=== PATIENT | male | born 1940 | race Caucasian/White ===

== ENCOUNTER → 2020-09-20 | Outpatient (CLI) | payer MEDICARE ==
--- NOTE | 2020-09-20 19:43 | REPVR ---
PROCEDURE INFORMATION: Exam: MR Cervical Spine Without Contrast Exam date and time: 09/20/2020 4:19 PM Age: 80 years old Clinical indication: Pain; Cervicalgia; Additional info: Lumbar t spine pain stenosis ddd abn gait/mobil. Pain in neck TECHNIQUE: Imaging protocol: Multiplanar magnetic resonance images of the cervical spine without contrast. COMPARISON: No relevant prior studies available. FINDINGS: Limitations: This examination is suboptimal secondary to patient motion. Vertebrae: There is loss of normal cervical lordosis with straightening and mild flexion through the upper and mid cervical spine, likely secondary to splinting and/or patient positioning. There is minimal anterolisthesis of C3, C4 and C7, likely degenerative. Spinal cord: No definite evidence of myelopathy. Discs/Spinal canal/Neural foramina: Degenerative disc disease and facet arthrosis is present throughout the cervical and visualized upper thoracic spine. There is advanced degenerative disc disease at T1-T2 with severe disc space height loss, osteophytic ridging, endplate and vertebral body edema signal and grade 1 anterolisthesis of T1. There is moderate/severe spinal stenosis at T1-T2. There is mild spinal stenosis at C3-C4, C4-C5, C5-C6 and C6-C7. Vasculature: Expected flow voids in the vertebral arteries. Soft tissues: Unremarkable IMPRESSION: 1. Suboptimal examination secondary to motion artifact. 2. Degenerative spondylosis throughout the cervical and upper thoracic spine. 3. Advanced degenerative disc disease at T1-T2 with grade 1 anterolisthesis of T1 and endplate and bone marrow edema signal. These changes are likely secondary to degenerative disc disease. Disco discovertebral infection is not excluded but less likely and close clinical correlation and possible follow-up MRI is recommended. Electronically signed by: Andrew Villasenor On 09/20/2020 19:43:22 PM
--- NOTE | 2020-09-20 20:22 | REPVR ---
PROCEDURE INFORMATION: Exam: MR Thoracic Spine Without Contrast Exam date and time: 09/20/2020 4:19 PM Age: 80 years old Clinical indication: Pain in thoracic spine; Without myelpathy or radiculopathy; Additional info: Lumbar t spine pain stenosis ddd abn gait/mobil TECHNIQUE: Imaging protocol: Multiplanar magnetic resonance images of the thoracic spine without contrast. COMPARISON: No relevant prior studies available. FINDINGS: Limitations: This examination is suboptimal secondary to patient motion. Discs/Spinal canal/Neural foramina: Degenerative disc disease and facet arthrosis is present throughout the thoracic spine. There is severe disc disease and facet arthrosis at T1-T2 with mild posterior broad-based disc protrusion, grade 1 anterolisthesis of T1 and bone marrow edema signal. There is moderate severe spinal stenosis at T1-T2 with flattening of the thoracic spinal cord which contains high signal, highly suspicious for cervical myelopathy. The disc disease at T1-T2 is likely degenerative. Underlying discovertebral infection is not completely excluded. Close clinical correlation with possible follow-up MRI is recommended. There is severe disc space height loss at T6-T7 with posterior disco-osteophytic protrusion, minimal anterolisthesis of T6 and vertebral bone marrow edema signal. These findings are likely secondary to severe degenerative disc disease. Discovertebral infection is not completely excluded. Close clinical correlation with possible follow-up MRI is recommended. Degenerative disc disease and facet arthrosis is present throughout the remainder of the thoracic spine with disc protrusions, osteophytic ridging and mild to moderate spinal stenosis at T11-T12, T12-L1 and L1-L2. Soft tissues: There is mild paravertebral soft tissue edema at T1-T2 and T6-T7. Kidneys and ureters: Well-defined fluid signal lesion within the right kidney is incompletely visualized but likely represents a cyst. If this is has not been confirmed by previous imaging study then nonemergent follow-up renal ultrasound is recommended. IMPRESSION: 1. Suboptimal examination secondary to motion artifact. 2. Severe disc disease at T1-T2 with findings suspicious for thoracic cord myelopathy. Discovertebral infection cannot be completely excluded. Correlate clinically and consider follow-up MRI. 3. Severe disc disease at T6-T7, likely degenerative. Discovertebral infection cannot be completely excluded. Correlate clinically and consider follow-up MRI. 4. Degenerative disc disease and facet arthrosis throughout the remainder of the thoracic spine with mild to moderate spinal stenosis at T11-T12, T12-L1 and L1-L2. 5. Well-defined fluid signal lesion within the right kidney is incompletely visualized but likely represents a cyst. If this is has not been confirmed by previous imaging study then nonemergent follow-up renal ultrasound is recommended. Electronically signed by: Andrew Villasenor On 09/20/2020 20:22:11 PM
== END ==
LOC: M RAD 14:43
PROVIDERS: ATTEND Neurological Surgery
DX: M48.061 Spinal stenosis, lumbar region without neurogenic claudication (principal); M48.04 Spinal stenosis, thoracic region; M51.36 Other intervertebral disc degeneration, lumbar region; R26.89 Other abnormalities of gait and mobility; M21.371 Foot drop, right foot